=== PATIENT | female | born 1945 | race Two or more races ===

== ENCOUNTER 2017-07-13 13:59 | Outpatient (CLI) | payer OTHER ==
[~2017-07-13 13:59] MED LIST: CIPRO500 MG PO; NORVASC10 MG PO; SYNTHROID50 MCG PO; TUSSI PRES-B L120 M1 PO; URIN D.S. TABLE1 TAB PO; VASOTEC20 MG PO; ZITHROMAX TRI-500 MG PO; [UNRECOGNIZED DRUG - OTHER]; [UNRECOGNIZED DRUG - OTHER]
== END 2017-07-13 14:24 | disposition home or self-care (01) ==
LOC: MAMO-SONO 13:59
DX: Z12.31 Encounter for screening mammogram for malignant neoplasm of breast (principal); Z87.898 Personal history of other specified conditions; N60.02 Solitary cyst of left breast; N60.01 Solitary cyst of right breast; N63.10 Unspecified lump in the right breast, unspecified quadrant; N63.20 Unspecified lump in the left breast, unspecified quadrant; M81.0 Age-related osteoporosis without current pathological fracture

== ENCOUNTER 2017-12-08 13:28 | Emergency (ER) | payer OTHER ==
[~2017-12-08] VITALS: Ht 157.5 cm; Wt 67.1 kg
[2017-12-08] MEDS ORDERED: AVAPRO300 MG (15:10)
== END 2017-12-08 18:19 | disposition home or self-care (01) ==
LOC: ER 13:28
DX: N39.0 Urinary tract infection, site not specified (principal); R31.29 Other microscopic hematuria; R30.0 Dysuria

== ENCOUNTER 2018-11-29 14:04 | Outpatient (CLI) | payer OTHER ==
[~2018-11-29 14:04] MED LIST changes: +AVAPRO300 MG
== END 2018-11-29 14:12 | disposition home or self-care (01) ==
LOC: MAMO-SONO 14:04
DX: Z12.39 Encounter for other screening for malignant neoplasm of breast (principal); Z12.31 Encounter for screening mammogram for malignant neoplasm of breast; Z87.898 Personal history of other specified conditions

== ENCOUNTER → 2018-12-06 | Outpatient (CLI) | payer OTHER | END | disposition home or self-care (01) | LOC: NUCLEAR 12:22 | DX: M81.0 Age-related osteoporosis without current pathological fracture (principal); Z13.820 Encounter for screening for osteoporosis ==

== ENCOUNTER 2019-08-18 12:03 | Outpatient (CLI) | payer OTHER | END 2019-08-18 12:20 | disposition home or self-care (01) | LOC: SONOGRAMA 12:03 | PROVIDERS: ATTEND Family Medicine Adult Medicine | DX: K75.89 Other specified inflammatory liver diseases (principal) ==

== ENCOUNTER 2019-09-16 19:33 | Emergency (ER) | payer OTHER ==
[~2019-09-16] VITALS: Ht 162.6 cm; Wt 62.6 kg
[2019-09-16] MEDS ORDERED: LOSARTAN-HCTZ1 EAC2 PO (19:59)
== END 2019-09-16 21:32 | disposition home or self-care (01) ==
LOC: ER 19:33
DX: L30.8 Other specified dermatitis (principal)

== ENCOUNTER 2020-06-08 14:26 | Outpatient (CLI) | payer OTHER ==
[~2020-06-08 14:26] MED LIST changes: +LOSARTAN-HCTZ1 EAC2 PO
== END 2020-06-08 14:29 | disposition home or self-care (01) ==
LOC: MAMO-SONO 14:26
PROVIDERS: ATTEND Family Medicine Adult Medicine
DX: Z12.31 Encounter for screening mammogram for malignant neoplasm of breast (principal); N60.11 Diffuse cystic mastopathy of right breast

== ENCOUNTER 2021-01-23 17:34 | Emergency (ER) | payer OTHER ==
[~2021-01-23] VITALS: Ht 157.5 cm; Wt 61.7 kg
[2021-01-23] MEDS ORDERED: METFORMIN HCL500 M3 (18:07)
[2021-01-23] MEDS ORDERED: MUPIROCIN15 GM TOP (19:16)
[2021-01-23] MEDS ORDERED: CLEOCIN HCL300 MG PO (19:16)
== END 2021-01-23 19:56 | disposition home or self-care (01) ==
LOC: ER 17:34
DX: L01.09 Other impetigo (principal)

== ENCOUNTER 2022-07-12 15:08 | Outpatient (CLI) | payer OTHER ==
[~2022-07-12 15:08] MED LIST changes: +CLEOCIN HCL300 MG PO; +METFORMIN HCL500 M3; +MUPIROCIN15 GM TOP
== END 2022-07-12 15:24 | disposition home or self-care (01) ==
LOC: MAMO-SONO 15:08
PROVIDERS: ATTEND Family Medicine Adult Medicine
DX: Z12.31 Encounter for screening mammogram for malignant neoplasm of breast (principal); N64.9 Disorder of breast, unspecified

== ENCOUNTER 2022-08-02 10:21 | Outpatient (CLI) | payer OTHER | END 2022-08-02 10:54 | disposition home or self-care (01) | LOC: SONOGRAMA 10:21 | PROVIDERS: ATTEND Family Medicine Adult Medicine | DX: R07.89 Other chest pain (principal); R10.84 Generalized abdominal pain ==

== ENCOUNTER 2022-08-04 12:48 | Outpatient (CLI) | payer OTHER | END 2022-08-04 12:51 | disposition home or self-care (01) | LOC: NUCLEAR 12:48 | PROVIDERS: ATTEND Family Medicine Adult Medicine | DX: M81.0 Age-related osteoporosis without current pathological fracture (principal) ==

== ENCOUNTER 2022-09-13 14:47 | Emergency (ER) | payer OTHER ==
[~2022-09-13] VITALS: Ht 157.5 cm; Wt 62.1 kg
== END 2022-09-13 18:26 | disposition home or self-care (01) ==
LOC: ER 14:47
DX: R53.1 Weakness (principal); I10 Essential (primary) hypertension; E13.9 Other specified diabetes mellitus without complications